=== PATIENT | female | born 1945 | race Caucasian/White ===

== ENCOUNTER 2019-05-21 14:31 | Emergency (ER) | payer MEDICARE, OTHER ==
[~2019-05-21] VITALS: Ht 154.9 cm; Wt 74.8 kg
[~2019-05-21 14:31] MED LIST: Cipro500 MG PO; Flagyl500 MG PO; Robaxin500 MG PO; UNKNOWN THYROID MED; Zofran Odt4 MG PO
[2019-05-21] MEDS ORDERED: LEVSOD100 PO (14:57)
[2019-05-21 16:21] LABS: BASOPHILS ABSOLUTE AUTO 0.07 K/mm3 (0.00-0.23); BASOPHILS PERCENT AUTO 1 % (0-2); EOSINOPHILS ABSOLUTE AUTO 0.17 K/mm3 (0.00-0.68); EOSINOPHILS PERCENT AUTO 2 % (0-6); Hemoglobin 14.9 g/dL (11.5-16.0); IMMATURE GRAN ABSOLUTE AUTO 0.03 K/mm3 (0.00-0.10); IMMATURE GRAN PERCENT AUTO 0 % (0-1); LYMPHOCYTES ABSOLUTE AUTO 2.02 K/mm3 (0.84-5.20); LYMPHOCYTES PERCENT AUTO 20 % (21-46); MONOCYTES ABSOLUTE AUTO 0.89 K/mm3 (0.16-1.47); MONOCYTES PERCENT AUTO 9 % (4-13); Mean Corpuscular HGB 34.3 pg (26.0-34.0); Mean Corpuscular HGB Conc 33.1 g/dL (31.5-36.5); Mean Corpuscular Volume 103 fL (80-100); Mean Platelet Volume 10.2 fL (9.1-12.4); NEUTROPHILS PERCENT AUTO 69 % (41-73); Platelet Count 291 K/mm3 (150-400); RDW Coefficient Variation 12.4 % (11.7-14.2); RDW Standard Deviation 47.5 fL (35.1-46.3); Red Blood Cell Count 4.35 M/mm3 (3.80-5.20); White Blood Cell Count 10.18 K/mm3 (4.00-11.30)
[2019-05-21 16:40] LABS: Alanine Aminotransfer (ALT/SGP 21 U/L (12-78); Albumin, Blood 4.1 g/dL (3.4-5.0); Alk Phos 96 U/L (50-136); Anion Gap 7 mmol/L (6-16); Aspartate Aminotrans (AST/SGOT 15 U/L (12-37); Bilirubin, Total 0.6 mg/dL (0.1-1.0); Blood Urea Nitrogen 13 mg/dL (8-24); Bun/Creatinine Ratio 16.9 (12.0-20.0); CO2, Blood 24 mmol/L (21-32); Calcium, Blood 9.2 mg/dL (8.5-10.1); Chloride, Blood 108 mmol/L (98-108); Creatinine, Blood 0.77 mg/dL (0.40-1.00); Glomerular Filtration Rate >60 (60-); Glucose, Blood 98 mg/dL (70-99); Sodium, Blood 139 mmol/L (136-145); Total Protein, Blood 8.1 g/dL (6.4-8.2)
[2019-05-21] MEDS ORDERED: ONDA4ODT MM (17:02)
[2019-05-21] MEDS ORDERED: IBUP400 PO (17:02)
== END 2019-05-21 17:19 | disposition home or self-care (01) ==
LOC: ER 14:31
PROVIDERS: Physician Assistant
DX: M53.3 Sacrococcygeal disorders, not elsewhere classified (principal); K63.89 Other specified diseases of intestine; Z87.891 Personal history of nicotine dependence; Z88.0 Allergy status to penicillin; Z88.8 Allergy status to other drugs, medicaments and biological substances; Z79.899 Other long term (current) drug therapy
CPT/HCPCS: 36415; 72131; 80053; 83690; 85025; 96372-59; 96374; 99284-25; A9270-GY; J1885; J2405; J2550

== ENCOUNTER 2019-05-31 15:12 | Inpatient (IN) | payer MEDICARE, OTHER ==
[~2019-05-31] VITALS: Ht 154.9 cm; Wt 81.1 kg
[~2019-05-31 15:12] MED LIST changes: +IBUP400 PO; +LEVSOD100 PO; +ONDA4ODT MM
[2019-05-31 15:48] LABS: Source, Urine Clean Catch
[2019-05-31 15:52] LABS: Blood, Urine 5+ (Neg); Glucose Qualitative, Urine Neg (Neg); Ketones, Urine 2+ (Neg); Leukocyte Esterase, Urine 3+ (Neg); Nitrite, Urine Neg (Neg); Protein, Urine 4+ (Neg); Urobilinogen, Urine 1+ (Normal)
[2019-05-31 15:55] LABS: Hematocrit 42.8 % (33.0-51.0); Hemoglobin 14.8 g/dL (11.5-16.0); LYMPHOCYTES ABSOLUTE AUTO 1.44 K/mm3 (0.84-5.20); LYMPHOCYTES PERCENT AUTO 4 % (21-46); MONOCYTES ABSOLUTE AUTO 1.08 K/mm3 (0.16-1.47); MONOCYTES PERCENT AUTO 3 % (4-13); Mean Corpuscular HGB 33.7 pg (26.0-34.0); Mean Corpuscular HGB Conc 34.6 g/dL (31.5-36.5); Mean Platelet Volume 12.4 fL (9.1-12.4); Platelet Count 131 K/mm3 (150-400); RDW Coefficient Variation 13.5 % (11.7-14.2); RDW Standard Deviation 49.3 fL (35.1-46.3); Red Blood Cell Count 4.39 M/mm3 (3.80-5.20); White Blood Cell Count 34.32 K/mm3 (4.00-11.30)
[2019-05-31 15:56] LABS: BASOPHILS ABSOLUTE AUTO 0.01 K/mm3 (0.00-0.23); BASOPHILS PERCENT AUTO 0 % (0-2); EOSINOPHILS ABSOLUTE AUTO 0.03 K/mm3 (0.00-0.68); EOSINOPHILS PERCENT AUTO 0 % (0-6); IMMATURE GRAN ABSOLUTE AUTO 1.49 K/mm3 (0.00-0.10); IMMATURE GRAN PERCENT AUTO 4 % (0-1); Mean Corpuscular Volume 98 fL (80-100); NEUTROPHILS ABSOLUTE AUTO 30.27 K/mm3 (1.96-9.15); NEUTROPHILS PERCENT AUTO 88 % (41-73)
[2019-05-31 16:07] LABS: Bilirubin, Urine 1+ (Neg)
[2019-05-31 16:14] LABS: Albumin, Blood 2.8 g/dL (3.4-5.0); Albumin/Globulin Ratio 0.6 (0.8-1.8); Bilirubin, Total 0.7 mg/dL (0.1-1.0); Creatinine, Blood 1.43 mg/dL (0.40-1.00); Globulin, Blood 4.8 g/dL (2.2-4.0); Potassium, Blood 3.1 mmol/L (3.5-5.5); Total Protein, Blood 7.6 g/dL (6.4-8.2)
[2019-05-31 16:14] LABS: Appearance, Urine Cloudy (Clear); Color, Urine Yellow (P-Yellow)
[2019-05-31 16:28] LABS: White Blood Cells, Urine TNTC /hpf (0-5)
[2019-05-31 16:29] LABS: Bacteria Many /hpf; Squamous Epithelial Cells Few /hpf (Few)
[2019-05-31] MEDS ORDERED: CYAN500 PO (20:08)
[2019-05-31] MEDS ORDERED: CENTRUM SILVER1 EAC2 PO (21:58)
[2019-05-31] MEDS ORDERED: TUMS500 MG PO (21:59)
[2019-05-31] MEDS ORDERED: Vitamin B-121000 MCG PO (21:59)
[2019-06-01 04:47] LABS: Hematocrit 35.2 % (33.0-51.0); Hemoglobin 12.2 g/dL (11.5-16.0); Mean Corpuscular HGB Conc 34.7 g/dL (31.5-36.5); Mean Corpuscular Volume 98 fL (80-100); Mean Platelet Volume 12.6 fL (9.1-12.4); Platelet Count 116 K/mm3 (150-400); RDW Coefficient Variation 13.9 % (11.7-14.2); RDW Standard Deviation 50.7 fL (35.1-46.3); Red Blood Cell Count 3.59 M/mm3 (3.80-5.20)
--- NOTE | 2019-06-01 04:51 | NUR ---
SHIFT SUMMARY: ARRIVED ON MEDICAL FLOOR AT 2130. A/OX3, T/F WITH SBA FROM STRETCHER TO BED. REPORTING MINOR NAUSEA IMMEDIATELY AFTER T/F AND IMPROVED WITH REST. REPORTING UPPER ABDOMEN/B SIDE PAIN- BELIEVES IT IS A RESULT OF RECENT FREQUENT BOUTS OF VOMITING AND DRY HEAVING. TORADOL ADMINISTERED X 1 ORDERED, LUCIA WELL AND REPORTED IMPROVEMENT IN PAIN FROM A 6/10 TO 4/10. NO FURTHER REPORTS OF N/V THE REST OF THE NIGHT. HAS SLEPT POORLY. ABT SOFT, TENDER WITH PALPATION, MILDLY DISTENDED. CALL BUTTON EXPLAINED AND PLACED WITHIN REACH. USING CALL BUTTON NEEDED APPROPRIATELY.
[2019-06-01 05:05] LABS: Bun/Creatinine Ratio 29.1 (12.0-20.0); Calcium, Blood 7.6 mg/dL (8.5-10.1); Creatinine, Blood 1.27 mg/dL (0.40-1.00); Potassium, Blood 3.6 mmol/L (3.5-5.5)
[2019-06-01 05:32] LABS: BAND PERCENT MAN 22 % (0-8); BASOPHILS PERCENT MAN 0 % (0-2); EOSINOPHILS PERCENT MAN 0 % (0-6); LYMPHOCYTES ABSOLUTE MAN 1.64 K/mm3 (0.84-5.20); LYMPHOCYTES PERCENT MAN 6 % (21-46); MONOCYTES ABSOLUTE MAN 0.27 K/mm3 (0.16-1.47); MONOCYTES PERCENT MAN 1 % (4-13); NEUTROPHILS ABSOLUTE MAN 25.48 K/mm3 (1.96-9.15); SEG NEUTROPHILS PERCENT MAN 71 % (41-73); TOTAL CELLS COUNTED 100
--- NOTE | 2019-06-01 18:26 | NUR ---
PATIENT A/OX4, UP WITH SBA TO RESTROOM. VSS, ON RA. TOLERATING CARDIAC DIET. DENIES ANY PAIN OR NAUSEA THIS SHIFT. REPORTS THAT SHE HAS HAD A BOWEL MOVEMENT TODAY, BUT STOOL APPEARED TO BE URINE AND PATIENT WAS NOT SURE IF IT WAS URINE OR STOOL IN THE HAT. STOOL SAMPLE STILL NEEDS TO BE COLLECTED. PATIENT HAD POSITIVE BLOOD CX THIS SHIFT AND WAS STARTED ON ROCEPHIN AND FLAGYL. HEPARIN FOR DVT PROPHYLAXSIS. SKIN INTACT. 20G IV TO R WRIST WNL, NS @ 100ML/HR INFUSING. PATIENT IS CALM AND COOPERATIVE WITH CARE AND USES CALL LIGHT APPROPRIATELY FOR ASSISTANCE.
[2019-06-02 04:50] LABS: BASOPHILS ABSOLUTE AUTO 0.09 K/mm3 (0.00-0.23); BASOPHILS PERCENT AUTO 1 % (0-2); Hematocrit 35.8 % (33.0-51.0); Hemoglobin 11.9 g/dL (11.5-16.0); LYMPHOCYTES ABSOLUTE AUTO 2.09 K/mm3 (0.84-5.20); LYMPHOCYTES PERCENT AUTO 12 % (21-46); MONOCYTES ABSOLUTE AUTO 0.64 K/mm3 (0.16-1.47); MONOCYTES PERCENT AUTO 4 % (4-13); Mean Corpuscular HGB 33.2 pg (26.0-34.0); Mean Corpuscular HGB Conc 33.2 g/dL (31.5-36.5); Mean Corpuscular Volume 100 fL (80-100); Mean Platelet Volume 12.5 fL (9.1-12.4); Platelet Count 138 K/mm3 (150-400); RDW Standard Deviation 51.5 fL (35.1-46.3); Red Blood Cell Count 3.58 M/mm3 (3.80-5.20)
[2019-06-02 04:53] LABS: EOSINOPHILS ABSOLUTE AUTO 0.33 K/mm3 (0.00-0.68); EOSINOPHILS PERCENT AUTO 2 % (0-6); IMMATURE GRAN ABSOLUTE AUTO 0.42 K/mm3 (0.00-0.10); IMMATURE GRAN PERCENT AUTO 3 % (0-1); NEUTROPHILS ABSOLUTE AUTO 13.23 K/mm3 (1.96-9.15); NEUTROPHILS PERCENT AUTO 79 % (41-73)
--- NOTE | 2019-06-02 05:03 | NUR ---
SHIFT SUMMARY: VSS/AFEB. A/OX4. COMMUNICATES NEEDS. REPORTS BURNING WITH VOIDS. NO BM'S TONIGHT. ABD SOFT, TENDER IN LLQ AND RUQ. DENIES N/V. REPEATEDLY CLEARING THROAT TONIGHT STATING INCREASED PHLEGM IN THROAT. NO COUGH AND LUNGS CTA. DENIES PAIN. BED LOW, CALL BUTTON IN REACH.
[2019-06-02 05:08] LABS: Magnesium, Blood 1.9 mg/dL (1.6-2.4)
[2019-06-02 05:16] LABS: Albumin/Globulin Ratio 0.6 (0.8-1.8); Bilirubin, Total 0.6 mg/dL (0.1-1.0); Bun/Creatinine Ratio 21.5 (12.0-20.0); Creatinine, Blood 1.07 mg/dL (0.40-1.00); Globulin, Blood 3.6 g/dL (2.2-4.0); Potassium, Blood 3.2 mmol/L (3.5-5.5)
[2019-06-02 05:18] LABS: Total Protein, Blood 5.6 g/dL (6.4-8.2)
--- NOTE | 2019-06-02 17:37 | NUR ---
SHIFT SUMMARY NO ACUTE CHANGES THIS SHIFT. PT DINISE PAIN. AMBULATES INDEPENDENTLY TO RESTROOM. PT HAS HAD 3 LOOSE STOOLS THIS SHIFT, PT CLEARED FOR C-DIFF. PT HAD A GOOD APETITE. CALL LIGHT WITH IN REACH. WILL REPORT TO ON COMING SHIFT.
--- NOTE | 2019-06-03 05:02 | NUR ---
Shift Summary Patient slept well overnight. No BM overnight. She does report mild abdominal pain with palpation.
[2019-06-03 05:38] LABS: BASOPHILS ABSOLUTE AUTO 0.06 K/mm3 (0.00-0.23); BASOPHILS PERCENT AUTO 1 % (0-2); EOSINOPHILS ABSOLUTE AUTO 0.29 K/mm3 (0.00-0.68); EOSINOPHILS PERCENT AUTO 3 % (0-6); Hematocrit 32.6 % (33.0-51.0); Hemoglobin 10.9 g/dL (11.5-16.0); IMMATURE GRAN ABSOLUTE AUTO 0.36 K/mm3 (0.00-0.10); IMMATURE GRAN PERCENT AUTO 3 % (0-1); LYMPHOCYTES ABSOLUTE AUTO 1.55 K/mm3 (0.84-5.20); LYMPHOCYTES PERCENT AUTO 14 % (21-46); MONOCYTES ABSOLUTE AUTO 0.63 K/mm3 (0.16-1.47); MONOCYTES PERCENT AUTO 6 % (4-13); Mean Corpuscular HGB 32.7 pg (26.0-34.0); Mean Corpuscular HGB Conc 33.4 g/dL (31.5-36.5); Mean Corpuscular Volume 98 fL (80-100); Mean Platelet Volume 12.5 fL (9.1-12.4); NEUTROPHILS ABSOLUTE AUTO 8.54 K/mm3 (1.96-9.15); NEUTROPHILS PERCENT AUTO 75 % (41-73); Platelet Count 165 K/mm3 (150-400); RDW Coefficient Variation 13.8 % (11.7-14.2); RDW Standard Deviation 50.3 fL (35.1-46.3); Red Blood Cell Count 3.33 M/mm3 (3.80-5.20); White Blood Cell Count 11.43 K/mm3 (4.00-11.30)
[2019-06-03 06:05] LABS: Alanine Aminotransfer (ALT/SGP 23 U/L (12-78); Albumin/Globulin Ratio 0.6 (0.8-1.8); Alk Phos 88 U/L (50-136); Anion Gap 9 mmol/L (6-16); Aspartate Aminotrans (AST/SGOT 12 U/L (12-37); Bilirubin, Total 0.4 mg/dL (0.1-1.0); Blood Urea Nitrogen 14 mg/dL (8-24); Bun/Creatinine Ratio 15.2 (12.0-20.0); CO2, Blood 20 mmol/L (21-32); Chloride, Blood 117 mmol/L (98-108); Creatinine, Blood 0.92 mg/dL (0.40-1.00); Globulin, Blood 3.2 g/dL (2.2-4.0); Glomerular Filtration Rate >60 (60-); Glucose, Blood 91 mg/dL (70-99); Phosphorus, Blood 2.3 mg/dL (2.5-4.9); Potassium, Blood 3.4 mmol/L (3.5-5.5); Sodium, Blood 146 mmol/L (136-145); Total Protein, Blood 5.2 g/dL (6.4-8.2)
--- NOTE | 2019-06-03 14:58 | NUR ---
PT SWALLOWING PT STATES DIFFICULTY SWALLOWING PILLS, REQUEST PILLS TO BE CRUCHED IN APPLE SAUCE. THIS RN NOTICED HACKING AND COUGHING AFTER MEALS. ST ORDERED PER DR. FIGUEROA
--- NOTE | 2019-06-03 18:05 | NUR ---
SHIFT SUMMARY NO ACUTE CHANGES THIS SHIFT. PT DINES ANY PAIN DURING THE SHIFT. PT TOLERATED FOOD WELL. PT REQUESTED PILLS TO BE CRUSHED. NOTIFIED DR FIGUEROA ABOUT SWALLOW CONCERNS. SWALLOW EVAL ORDERED. PT INDEPENTENT TO BATHROOM. CALL LIGHT WITH IN REACH. WILL REPORT TO ON COMING SHIFT.
--- NOTE | 2019-06-03 18:40 | NUR ---
Spiritual Care initial note: Keely and her are non-yazidism, but responded well to encouragement and asurance of care. Strong marriage, and pt feels loved and supported by family. No fears presented. Affirmed obvious love. I will remain available.
--- NOTE | 2019-06-03 23:56 | NUR ---
PATIENT SLEEPING/AROUSABLE. IV ABX INFUSING AND HEPARIN GIVEN PER EMAR. PATIENT BACK TO SLEEP. CALL LIGHT IN REACH.
--- NOTE | 2019-06-04 03:36 | NUR ---
SHIFT SUMMARY PATIENT HAD NO ACUTE CHANGES OBSERVED. AXO X3 AND INDEPENDENT IN ROOM. NEW PIV PLACED. NS INFUSING AT 100 mL/HR. VSS/AFEBRILE. MILD ABDOMEN PAIN WITH PALPITATION. DENIES SOB AND N/V. IV ABX INFUSED. TAKES MEDS CRUSHED IN APPLE SAUCE. PATIENT REPORTS MUCOUS SECRETIONS FOR OVER SIX MONTHS AND NO OTC PRODUCTS GIVES HER RELIEF. SWALLOW EVAL IN AM. COOPERATIVE WITH CARE. CALL LIGHT IN REACH. BED IN LOWEST POSITION. WILL CONTINUE TO MONITOR UNTIL DAY SHIFT NURSE ASSUMES CARE.
[2019-06-04 05:32] LABS: BASOPHILS ABSOLUTE AUTO 0.04 K/mm3 (0.00-0.23); BASOPHILS PERCENT AUTO 0 % (0-2); EOSINOPHILS ABSOLUTE AUTO 0.29 K/mm3 (0.00-0.68); EOSINOPHILS PERCENT AUTO 3 % (0-6); Hematocrit 32.9 % (33.0-51.0); Hemoglobin 10.9 g/dL (11.5-16.0); IMMATURE GRAN ABSOLUTE AUTO 0.31 K/mm3 (0.00-0.10); IMMATURE GRAN PERCENT AUTO 3 % (0-1); LYMPHOCYTES ABSOLUTE AUTO 1.55 K/mm3 (0.84-5.20); LYMPHOCYTES PERCENT AUTO 15 % (21-46); MONOCYTES ABSOLUTE AUTO 0.65 K/mm3 (0.16-1.47); MONOCYTES PERCENT AUTO 6 % (4-13); Mean Corpuscular HGB 32.7 pg (26.0-34.0); Mean Corpuscular HGB Conc 33.1 g/dL (31.5-36.5); Mean Corpuscular Volume 99 fL (80-100); Mean Platelet Volume 12.1 fL (9.1-12.4); NEUTROPHILS ABSOLUTE AUTO 7.66 K/mm3 (1.96-9.15); NEUTROPHILS PERCENT AUTO 73 % (41-73); Platelet Count 208 K/mm3 (150-400); RDW Coefficient Variation 13.8 % (11.7-14.2); RDW Standard Deviation 50.5 fL (35.1-46.3); Red Blood Cell Count 3.33 M/mm3 (3.80-5.20)
[2019-06-04 06:08] LABS: Magnesium, Blood 1.5 mg/dL (1.6-2.4)
[2019-06-04 06:10] LABS: Alanine Aminotransfer (ALT/SGP 27 U/L (12-78); Albumin, Blood 2.1 g/dL (3.4-5.0); Albumin/Globulin Ratio 0.7 (0.8-1.8); Alk Phos 81 U/L (50-136); Anion Gap 7 mmol/L (6-16); Aspartate Aminotrans (AST/SGOT 26 U/L (12-37); Bilirubin, Total 0.6 mg/dL (0.1-1.0); Blood Urea Nitrogen 8 mg/dL (8-24); Bun/Creatinine Ratio 9.2 (12.0-20.0); CO2, Blood 22 mmol/L (21-32); Calcium, Blood 7.7 mg/dL (8.5-10.1); Chloride, Blood 116 mmol/L (98-108); Creatinine, Blood 0.87 mg/dL (0.40-1.00); Globulin, Blood 3.2 g/dL (2.2-4.0); Glomerular Filtration Rate >60 (60-); Glucose, Blood 90 mg/dL (70-99); Phosphorus, Blood 2.4 mg/dL (2.5-4.9); Potassium, Blood 3.4 mmol/L (3.5-5.5); Sodium, Blood 145 mmol/L (136-145); Total Protein, Blood 5.3 g/dL (6.4-8.2)
[2019-06-04] MEDS ORDERED: METR500 PO (14:22)
--- NOTE | 2019-06-04 15:17 | NUR ---
DISCHARGE NOTE PT STABLE, DISCHARGED HOME WITH TAKEN BY W/C TO , BY PRIVATE CAR. INSTRUCTED PT ON NEW MEDS AND EDUCATION PROVIDED. INSTRUCTED PT TO RETURN TO ER IF SYMPTOMS RETURN AND SCHEDULE APPOINTMENT WITH PCP STEVE 2 WEEKS
== END 2019-06-04 15:15 | disposition home or self-care (01) | DRG 872 ==
LOC: ER 15:12 → MEDS 15:13
PROVIDERS: Internal Medicine; Physician Assistant; ADMIT Hospitalist
DX: A41.51 Sepsis due to Escherichia coli [E. coli] (principal); N17.9 Acute kidney failure, unspecified; E87.2 Acidosis; N39.0 Urinary tract infection, site not specified; R65.20 Severe sepsis without septic shock; E87.6 Hypokalemia; E03.9 Hypothyroidism, unspecified; K52.9 Noninfective gastroenteritis and colitis, unspecified; Z87.891 Personal history of nicotine dependence; Z23 Encounter for immunization
CPT/HCPCS: 36415; 71046; 74176; 80048; 80053; 81001; 83605; 83690; 83735; 84100; 84443; 85025; 87040; 87077; 87086; 87186; 87493; 90686; 92610; 96361; 96365; 96366; 96367; 96372; 96375; 96376; 99285-25; G0008; G0378; J0696; J1644; J1885; J2405; J3475; J3480; J7030; J7120

== ENCOUNTER 2020-05-29 00:23 | Day surgery (SDC) | payer MEDICARE, OTHER ==
[~2020-05-29 00:23] MED LIST changes: +CENTRUM SILVER1 EAC2 PO; +CYAN500 PO; +METR500 PO; +TUMS500 MG PO; +Vitamin B-121000 MCG PO
[2020-05-30] MEDS ORDERED: Vitamin B-121000 MCG PO (09:45)
[2020-05-30] MEDS ORDERED: Child Chew Vit1 EACH PO (09:48)
== END 2020-05-29 23:37 | disposition home or self-care (01) ==
LOC: ATC 00:23
DX: K57.20 Diverticulitis of large intestine with perforation and abscess without bleeding (principal); K42.9 Umbilical hernia without obstruction or gangrene; Z88.0 Allergy status to penicillin; Z88.5 Allergy status to narcotic agent; E03.9 Hypothyroidism, unspecified; Z79.899 Other long term (current) drug therapy

== ENCOUNTER 2020-06-02 02:50 | Day surgery (SDC) | payer MEDICARE, OTHER ==
[~2020-06-02 02:50] MED LIST changes: +Child Chew Vit1 EACH PO
== END 2020-06-02 09:58 | disposition home or self-care (01) ==
LOC: ATC 02:50
DX: K57.20 Diverticulitis of large intestine with perforation and abscess without bleeding (principal); E03.9 Hypothyroidism, unspecified; M19.90 Unspecified osteoarthritis, unspecified site; Z79.2 Long term (current) use of antibiotics; Z79.899 Other long term (current) drug therapy; Z90.49 Acquired absence of other specified parts of digestive tract; Z90.710 Acquired absence of both cervix and uterus; Z88.0 Allergy status to penicillin; Z88.5 Allergy status to narcotic agent; Z51.5 Encounter for palliative care
CPT/HCPCS: 96365; 96368; J0696

== ENCOUNTER 2020-06-03 09:00 | Day surgery (SDC) | payer MEDICARE, OTHER | END 2020-06-03 10:16 | disposition home or self-care (01) | LOC: ATC 09:00 | DX: K57.20 Diverticulitis of large intestine with perforation and abscess without bleeding (principal); Z88.0 Allergy status to penicillin; Z88.5 Allergy status to narcotic agent; Z79.899 Other long term (current) drug therapy | CPT/HCPCS: 96365; 96368; J0696 ==

== ENCOUNTER 2020-06-04 00:37 | Day surgery (SDC) | payer MEDICARE, OTHER | END 2020-06-04 10:02 | disposition home or self-care (01) | LOC: ATC 00:37 | DX: K57.20 Diverticulitis of large intestine with perforation and abscess without bleeding (principal); Z88.0 Allergy status to penicillin; Z88.5 Allergy status to narcotic agent; Z79.899 Other long term (current) drug therapy | CPT/HCPCS: J0696 ==

== ENCOUNTER 2020-06-05 08:56 | Day surgery (SDC) | payer MEDICARE, OTHER | END 2020-06-05 10:10 | disposition home or self-care (01) | LOC: ATC 08:56 | DX: K57.20 Diverticulitis of large intestine with perforation and abscess without bleeding (principal); Z88.0 Allergy status to penicillin; Z88.5 Allergy status to narcotic agent; Z79.899 Other long term (current) drug therapy | CPT/HCPCS: J0696 ==

== ENCOUNTER 2020-06-06 01:46 | Day surgery (SDC) | payer MEDICARE, OTHER ==
--- NOTE | 2020-06-07 11:42 | NUR ---
FLAGYL INFUSION: 1ST BAG OF FLAGYL 500MG IV WAS STOPPED AT 0940. 2ND BAG OF FLAGYL 500MG IV WAS HUNG AT 0940 AND STOPPED AT 1017.
== END 2020-06-06 10:17 | disposition home or self-care (01) ==
LOC: ATC 01:46
DX: K57.20 Diverticulitis of large intestine with perforation and abscess without bleeding (principal); E03.9 Hypothyroidism, unspecified; Z88.5 Allergy status to narcotic agent; Z88.0 Allergy status to penicillin; Z79.899 Other long term (current) drug therapy
CPT/HCPCS: J0696

== ENCOUNTER 2020-06-07 00:19 | Day surgery (SDC) | payer MEDICARE, OTHER | END 2020-06-07 09:57 | disposition home or self-care (01) | LOC: ATC 00:19 | DX: K57.20 Diverticulitis of large intestine with perforation and abscess without bleeding (principal); E03.9 Hypothyroidism, unspecified; M19.90 Unspecified osteoarthritis, unspecified site; Z88.0 Allergy status to penicillin; Z88.5 Allergy status to narcotic agent; Z79.899 Other long term (current) drug therapy; Z79.2 Long term (current) use of antibiotics; Z90.49 Acquired absence of other specified parts of digestive tract | CPT/HCPCS: J0696 ==

== ENCOUNTER 2020-06-08 00:06 | Day surgery (SDC) | payer MEDICARE, OTHER | END 2020-06-08 09:50 | disposition home or self-care (01) | LOC: ATC 00:06 | DX: K57.20 Diverticulitis of large intestine with perforation and abscess without bleeding (principal); E03.9 Hypothyroidism, unspecified; M19.90 Unspecified osteoarthritis, unspecified site; Z79.2 Long term (current) use of antibiotics; Z79.899 Other long term (current) drug therapy; Z90.49 Acquired absence of other specified parts of digestive tract; Z90.710 Acquired absence of both cervix and uterus; Z88.0 Allergy status to penicillin; Z88.5 Allergy status to narcotic agent | CPT/HCPCS: 96365; 96368; J0696 ==

== ENCOUNTER 2020-06-28 14:13 | Inpatient (IN) | payer MEDICARE, OTHER ==
[~2020-06-28] VITALS: Ht 149.9 cm; Wt 70.7 kg
[2020-07-01 09:25] LABS: Hematocrit 37.2 % (33.0-51.0); Mean Corpuscular HGB 32.7 pg (26.0-34.0); Mean Corpuscular HGB Conc 32.3 g/dL (31.5-36.5); Mean Corpuscular Volume 101 fL (80-100); Mean Platelet Volume 9.7 fL (9.1-12.4); Platelet Count 336 K/mm3 (150-400); RDW Coefficient Variation 13.7 % (11.7-14.2); RDW Standard Deviation 51.8 fL (35.1-46.3); Red Blood Cell Count 3.67 M/mm3 (3.80-5.20); White Blood Cell Count 13.26 K/mm3 (4.00-11.30)
[2020-07-01 09:32] LABS: Albumin, Blood 3.3 g/dL (3.4-5.0); Anion Gap 6 mmol/L (6-16); Blood Urea Nitrogen 10 mg/dL (8-24); Bun/Creatinine Ratio 15.3 (12.0-20.0); CO2, Blood 24 mmol/L (21-32); Calcium, Blood 8.3 mg/dL (8.5-10.1); Chloride, Blood 113 mmol/L (98-108); Creatinine, Blood 0.66 mg/dL (0.40-1.00); Glomerular Filtration Rate >60 (60-); Glucose, Blood 104 mg/dL (70-99); Phosphorus, Blood 2.4 mg/dL (2.5-4.9); Potassium, Blood 3.3 mmol/L (3.5-5.5); Prealbumin, Blood 15.6 mg/dL (20.0-40.0); Sodium, Blood 143 mmol/L (136-145)
[2020-07-02 03:49] LABS: Hemoglobin 12.1 g/dL (11.5-16.0); Mean Corpuscular HGB 32.6 pg (26.0-34.0); Mean Corpuscular HGB Conc 31.8 g/dL (31.5-36.5); Mean Corpuscular Volume 102 fL (80-100); RDW Coefficient Variation 13.8 % (11.7-14.2); RDW Standard Deviation 52.8 fL (35.1-46.3); Red Blood Cell Count 3.71 M/mm3 (3.80-5.20); White Blood Cell Count 15.42 K/mm3 (4.00-11.30)
[2020-07-02 03:53] LABS: Mean Platelet Volume 10.3 fL (9.1-12.4); Platelet Count 240 K/mm3 (150-400)
[2020-07-02 04:12] LABS: Anion Gap 5 mmol/L (6-16); Blood Urea Nitrogen 7 mg/dL (8-24); Bun/Creatinine Ratio 10.6 (12.0-20.0); CO2, Blood 25 mmol/L (21-32); Chloride, Blood 114 mmol/L (98-108); Creatinine, Blood 0.66 mg/dL (0.40-1.00); Glomerular Filtration Rate >60 (60-); Glucose, Blood 133 mg/dL (70-99); Potassium, Blood 4.4 mmol/L (3.5-5.5); Sodium, Blood 144 mmol/L (136-145)
[2020-07-04 03:42] LABS: Hematocrit 34.9 % (33.0-51.0); Hemoglobin 11.1 g/dL (11.5-16.0); Mean Corpuscular HGB Conc 31.8 g/dL (31.5-36.5); Mean Corpuscular Volume 104 fL (80-100); Platelet Count 275 K/mm3 (150-400); RDW Standard Deviation 54.2 fL (35.1-46.3); Red Blood Cell Count 3.36 M/mm3 (3.80-5.20); White Blood Cell Count 17.53 K/mm3 (4.00-11.30)
[2020-07-04 03:59] LABS: Anion Gap 4 mmol/L (6-16); Blood Urea Nitrogen 13 mg/dL (8-24); Bun/Creatinine Ratio 16.1 (12.0-20.0); CO2, Blood 26 mmol/L (21-32); Calcium, Blood 9.1 mg/dL (8.5-10.1); Chloride, Blood 111 mmol/L (98-108); Creatinine, Blood 0.81 mg/dL (0.40-1.00); Glomerular Filtration Rate >60 (60-); Glucose, Blood 108 mg/dL (70-99); Magnesium, Blood 2.2 mg/dL (1.6-2.4); Potassium, Blood 4.6 mmol/L (3.5-5.5); Sodium, Blood 141 mmol/L (136-145)
[2020-07-05 04:14] LABS: BASOPHILS ABSOLUTE AUTO 0.04 K/mm3 (0.00-0.23); BASOPHILS PERCENT AUTO 1 % (0-2); EOSINOPHILS PERCENT AUTO 4 % (0-6); Hematocrit 31.2 % (33.0-51.0); Hemoglobin 9.9 g/dL (11.5-16.0); IMMATURE GRAN ABSOLUTE AUTO 0.05 K/mm3 (0.00-0.10); IMMATURE GRAN PERCENT AUTO 1 % (0-1); LYMPHOCYTES ABSOLUTE AUTO 0.96 K/mm3 (0.84-5.20); LYMPHOCYTES PERCENT AUTO 11 % (21-46); MONOCYTES ABSOLUTE AUTO 0.75 K/mm3 (0.16-1.47); MONOCYTES PERCENT AUTO 9 % (4-13); Mean Corpuscular HGB 33.1 pg (26.0-34.0); Mean Corpuscular HGB Conc 31.7 g/dL (31.5-36.5); Mean Corpuscular Volume 104 fL (80-100); Mean Platelet Volume 10.4 fL (9.1-12.4); NEUTROPHILS ABSOLUTE AUTO 6.34 K/mm3 (1.96-9.15); NEUTROPHILS PERCENT AUTO 75 % (41-73); Platelet Count 260 K/mm3 (150-400); RDW Coefficient Variation 13.8 % (11.7-14.2); Red Blood Cell Count 2.99 M/mm3 (3.80-5.20); White Blood Cell Count 8.44 K/mm3 (4.00-11.30)
[2020-07-05 09:54] LABS: Hematocrit 33.6 % (33.0-51.0); Hemoglobin 10.6 g/dL (11.5-16.0); Mean Corpuscular HGB 32.8 pg (26.0-34.0); Mean Corpuscular HGB Conc 31.5 g/dL (31.5-36.5); Mean Corpuscular Volume 104 fL (80-100); Mean Platelet Volume 9.9 fL (9.1-12.4); Platelet Count 265 K/mm3 (150-400); RDW Coefficient Variation 13.6 % (11.7-14.2); RDW Standard Deviation 52.9 fL (35.1-46.3); Red Blood Cell Count 3.23 M/mm3 (3.80-5.20); White Blood Cell Count 9.21 K/mm3 (4.00-11.30)
[2020-07-06 04:03] LABS: BASOPHILS ABSOLUTE AUTO 0.04 K/mm3 (0.00-0.23); BASOPHILS PERCENT AUTO 1 % (0-2); EOSINOPHILS PERCENT AUTO 4 % (0-6); Hematocrit 31.4 % (33.0-51.0); IMMATURE GRAN ABSOLUTE AUTO 0.05 K/mm3 (0.00-0.10); IMMATURE GRAN PERCENT AUTO 1 % (0-1); LYMPHOCYTES ABSOLUTE AUTO 1.23 K/mm3 (0.84-5.20); LYMPHOCYTES PERCENT AUTO 16 % (21-46); MONOCYTES ABSOLUTE AUTO 0.69 K/mm3 (0.16-1.47); MONOCYTES PERCENT AUTO 9 % (4-13); Mean Corpuscular HGB 32.4 pg (26.0-34.0); Mean Corpuscular HGB Conc 31.8 g/dL (31.5-36.5); Mean Corpuscular Volume 102 fL (80-100); Mean Platelet Volume 10.4 fL (9.1-12.4); NEUTROPHILS ABSOLUTE AUTO 5.46 K/mm3 (1.96-9.15); NEUTROPHILS PERCENT AUTO 70 % (41-73); Platelet Count 263 K/mm3 (150-400); RDW Coefficient Variation 13.5 % (11.7-14.2); Red Blood Cell Count 3.09 M/mm3 (3.80-5.20); White Blood Cell Count 7.77 K/mm3 (4.00-11.30)
[2020-07-06 04:23] LABS: Albumin, Blood 2.2 g/dL (3.4-5.0); Anion Gap 5 mmol/L (6-16); Blood Urea Nitrogen 11 mg/dL (8-24); Bun/Creatinine Ratio 14.4 (12.0-20.0); CO2, Blood 25 mmol/L (21-32); Calcium, Blood 8.3 mg/dL (8.5-10.1); Chloride, Blood 112 mmol/L (98-108); Creatinine, Blood 0.77 mg/dL (0.40-1.00); Glomerular Filtration Rate >60 (60-); Glucose, Blood 89 mg/dL (70-99); Phosphorus, Blood 2.8 mg/dL (2.5-4.9); Potassium, Blood 4.1 mmol/L (3.5-5.5); Sodium, Blood 142 mmol/L (136-145)
[2020-07-08 05:39] LABS: Alanine Aminotransfer (ALT/SGP 31 U/L (12-78); Albumin, Blood 2.4 g/dL (3.4-5.0); Albumin/Globulin Ratio 0.7 (0.8-1.8); Alk Phos 84 U/L (50-136); Anion Gap 5 mmol/L (6-16); Aspartate Aminotrans (AST/SGOT 39 U/L (12-37); Bilirubin, Direct <0.1 mg/dL (0.0-0.3); Bilirubin, Indirect Unable to Calculate mg/dL (0.1-0.7); Bilirubin, Total 0.2 mg/dL (0.1-1.0); Blood Urea Nitrogen 10 mg/dL (8-24); Bun/Creatinine Ratio 15.8 (12.0-20.0); CO2, Blood 28 mmol/L (21-32); Calcium, Blood 8.2 mg/dL (8.5-10.1); Chloride, Blood 111 mmol/L (98-108); Creatinine, Blood 0.63 mg/dL (0.40-1.00); Globulin, Blood 3.3 g/dL (2.2-4.0); Glomerular Filtration Rate >60 (60-); Glucose, Blood 104 mg/dL (70-99); Phosphorus, Blood 3.2 mg/dL (2.5-4.9); Potassium, Blood 3.8 mmol/L (3.5-5.5); Prealbumin, Blood 13.2 mg/dL (20.0-40.0); Sodium, Blood 144 mmol/L (136-145); Total Protein, Blood 5.7 g/dL (6.4-8.2); Triglycerides 134 mg/dL (30-160)
[2020-07-09 07:01] LABS: Anion Gap 5 mmol/L (6-16); Blood Urea Nitrogen 10 mg/dL (8-24); CO2, Blood 26 mmol/L (21-32); Calcium, Blood 8.6 mg/dL (8.5-10.1); Chloride, Blood 111 mmol/L (98-108); Creatinine, Blood 0.62 mg/dL (0.40-1.00); Glomerular Filtration Rate >60 (60-); Glucose, Blood 98 mg/dL (70-99); Magnesium, Blood 2.2 mg/dL (1.6-2.4); Phosphorus, Blood 3.1 mg/dL (2.5-4.9); Potassium, Blood 3.9 mmol/L (3.5-5.5); Sodium, Blood 142 mmol/L (136-145)
[2020-07-10 05:23] LABS: BASOPHILS ABSOLUTE AUTO 0.07 K/mm3 (0.00-0.23); BASOPHILS PERCENT AUTO 1 % (0-2); EOSINOPHILS ABSOLUTE AUTO 0.37 K/mm3 (0.00-0.68); EOSINOPHILS PERCENT AUTO 4 % (0-6); Hematocrit 36.6 % (33.0-51.0); Hemoglobin 11.7 g/dL (11.5-16.0); IMMATURE GRAN ABSOLUTE AUTO 0.19 K/mm3 (0.00-0.10); IMMATURE GRAN PERCENT AUTO 2 % (0-1); LYMPHOCYTES ABSOLUTE AUTO 2.48 K/mm3 (0.84-5.20); LYMPHOCYTES PERCENT AUTO 27 % (21-46); MONOCYTES ABSOLUTE AUTO 0.86 K/mm3 (0.16-1.47); MONOCYTES PERCENT AUTO 9 % (4-13); Mean Corpuscular HGB 32.7 pg (26.0-34.0); Mean Corpuscular Volume 102 fL (80-100); Mean Platelet Volume 10.5 fL (9.1-12.4); NEUTROPHILS PERCENT AUTO 57 % (41-73); Platelet Count 423 K/mm3 (150-400); RDW Coefficient Variation 14.1 % (11.7-14.2); RDW Standard Deviation 52.8 fL (35.1-46.3); Red Blood Cell Count 3.58 M/mm3 (3.80-5.20); White Blood Cell Count 9.17 K/mm3 (4.00-11.30)
[2020-07-10 05:51] LABS: Anion Gap 7 mmol/L (6-16); Blood Urea Nitrogen 15 mg/dL (8-24); Bun/Creatinine Ratio 19.7 (12.0-20.0); CO2, Blood 25 mmol/L (21-32); Calcium, Blood 8.5 mg/dL (8.5-10.1); Chloride, Blood 108 mmol/L (98-108); Creatinine, Blood 0.76 mg/dL (0.40-1.00); Glomerular Filtration Rate >60 (60-); Glucose, Blood 93 mg/dL (70-99); Magnesium, Blood 2.2 mg/dL (1.6-2.4); Phosphorus, Blood 3.4 mg/dL (2.5-4.9); Potassium, Blood 3.7 mmol/L (3.5-5.5); Sodium, Blood 140 mmol/L (136-145)
[2020-07-12] MEDS ORDERED: ACET325 PO (13:47)
[2020-07-12] MEDS ORDERED: METAMUCIL POWD575 GM PO (13:48)
[2020-08-04] MEDS ORDERED: LEVO-T100 MC1 PO (12:36)
== END 2020-07-12 16:14 | disposition home or self-care (01) | DRG 329 ==
LOC: SURS 07-01 07:02 → PRE IP 07-01 07:30 → SURS 07-01 14:14
PROVIDERS: Surgery; ADMIT Surgery
PROC: 05HY33Z Insertion of Infusion Device into Upper Vein, Percutaneous Approach (ICD-10-PCS; 2020-07-01)
PROC: 0W9J4ZX Drainage of Pelvic Cavity, Percutaneous Endoscopic Approach, Diagnostic (ICD-10-PCS; 2020-07-01)
PROC: 0DTN0ZZ Resection of Sigmoid Colon, Open Approach (ICD-10-PCS; principal; 2020-07-01 08:15)
PROC: 0D1B0Z4 Bypass Ileum to Cutaneous, Open Approach (ICD-10-PCS; 2020-07-01 08:15)
DX: K57.20 Diverticulitis of large intestine with perforation and abscess without bleeding (principal); K65.8 Other peritonitis; K56.7 Ileus, unspecified; K42.9 Umbilical hernia without obstruction or gangrene; Z53.31 Laparoscopic surgical procedure converted to open procedure
CPT/HCPCS: 36415; 36569; 74177; 80048; 80069; 80076; 82947; 83735; 84100; 84134; 84478; 85025; 85027; 86140; 87070; 87075; 87205; 88307; 97116; 97161; 97165; 97530; 97535; A9270; C1751; J0694; J1100; J1170; J1644; J1650; J1885; J2250; J2370; J2405; J2550; J2704; J2765; J3010; J7050; J7120; Q9967; Q9968

== ENCOUNTER 2020-08-05 15:28 | Inpatient (IN) | payer MEDICARE, OTHER ==
[~2020-08-05] VITALS: Ht 154.9 cm; Wt 69.1 kg
[~2020-08-05 15:28] MED LIST changes: +ACET325 PO; +LEVO-T100 MC1 PO; +METAMUCIL POWD575 GM PO
--- NOTE | 2020-08-10 07:29 | NUR ---
Ambulatory in Day Surgery. Surgical site prepped with 2% Chlorhexidine cloth wipe. History, Chart, Medications and Allergies reviewed before start of procedure.Lungs clear T/O to Auscultation. Patient confirms NPO status and agrees with scheduled surgery. Pre-Op teaching done. Pt verbalizes understanding. Patient States Post-Procedure ride home has been arranged. Patient reports completing Chlorhexadine shower X2 prior to admission to hospital.
--- NOTE | 2020-08-10 10:54 | NUR ---
PT ARRIVED TO UNIT FROM PACU A&OX4. REPORTED PAIN 6/10 TO ABD. MEDICATED PER ORDERS FOR PAIN; NOW STATES SLIGHT IMPROVEMENT, RATING 5/10. HEMMORHOID CLOT EXCISED, MOD AMT BLEEDING NOTED ON ARANDA PAD. LAP INCISIONS TO ABD SECURED WITH WOUND GLUE. ILEOSTOMY CLOSURE SITE HAS GAUZE W/MOD AMT SHADOWING NOTED. PT RESTING W/EYES CLOSED. VSS. CALL LIGHT IN REACH.
--- NOTE | 2020-08-10 15:22 | NUR ---
DRESSING TO ILEOSTOMY CLOSURE SITE SATURATED AND LEAKING. PLACED NEW GAUZE AND TAPE OVER SITE.
--- NOTE | 2020-08-10 17:51 | NUR ---
SUMMARY PT ARRIVED TO UNIT FROM PACU THIS MORNING. HAS SLEPT OFF AND ON T/O MOST OF DAY. MEDICATED TWICE FOR PAIN AND NAUSEA. PT DID AMBULATE TO RESTROOM AND VOIDED. CHANGED DRESSING TO ABDOMEN DUE TO SATURATION THIS AFTERNOON. PT SITTING UP IN BED, EATING DINNER. CALL LIGHT IN REACH.
--- NOTE | 2020-08-10 18:16 | NUR ---
EMESIS PT ATE SMALL AMOUNT OF DINNER AND IMMEDIATELY HAD 200 ML EMESIS. MEDICATED PER ORDERS W/ZOFRAN. RATED PAIN 6-7/10 TO ABDOMEN. MEDICATED PER ORDERS W/TORADOL. IV FLUIDS INFUSING. DENIES ANY OTHER NEEDS AT THIS TIME. CALL LIGHT IN REACH.
[2020-08-11 05:42] LABS: Hematocrit 32.1 % (33.0-51.0); Hemoglobin 10.4 g/dL (11.5-16.0); Mean Corpuscular HGB 33.7 pg (26.0-34.0); Mean Corpuscular HGB Conc 32.4 g/dL (31.5-36.5); Mean Corpuscular Volume 104 fL (80-100); Mean Platelet Volume 10.4 fL (9.1-12.4); Platelet Count 217 K/mm3 (150-400); RDW Coefficient Variation 14.3 % (11.7-14.2); RDW Standard Deviation 54.6 fL (35.1-46.3); Red Blood Cell Count 3.09 M/mm3 (3.80-5.20); White Blood Cell Count 10.55 K/mm3 (4.00-11.30)
--- NOTE | 2020-08-11 06:31 | NUR ---
POD 1 S/P ILEOSTOMY TAKEDOWN. PT VSS T/O NIGHT. PT REP PAIN LUCIA AT REST, DOES INC W/MVMT, DECLINED NEED FOR PAIN MEDS. INCISIONS INTACT, STOMA SITE W/SS DRNG. PO INTAKE MINIMAL, PO FLUIDS ENC. PT BT HYPO, PT HAD NO C/O N/V, NO FLATUS YET. PT CONT TO HAVE SMALL AMT BLEEDING FROM RECTUM, SITZ BATH DONE X1 THIS SHIFT. PT UP OOB W/SBA, PT LUCIA WELL.
--- NOTE | 2020-08-11 08:00 | NUR ---
PT SITTING UP ON EDGE OF THE BED EATING BREAKFAST NO NAUSEA AT THIS TIME
--- NOTE | 2020-08-11 08:45 | NUR ---
meds given as sched pt denies nausea afer eating her breakfast will change dressing
--- NOTE | 2020-08-11 11:06 | NUR ---
pt just had sitz bath no bleeding noted
--- NOTE | 2020-08-11 11:55 | NUR ---
pt eating lunch
--- NOTE | 2020-08-11 12:54 | NUR ---
pt faustina lunch no nausea
--- NOTE | 2020-08-11 13:59 | NUR ---
iv toradol serosang drainage to abd pt stated if it stops draining it can be a bandaid only
--- NOTE | 2020-08-11 17:31 | NUR ---
pt eating dinner
--- NOTE | 2020-08-11 18:26 | NUR ---
dr cardoza by to see pt
--- NOTE | 2020-08-12 06:23 | NUR ---
SHIFT SUMMARY: HADLEY IS A&OX4. VSS, NO ACUTE EVENTS OVERNIGHT. DRESSING CHANGED TO PREVIOUS STOMA SITE. SHE IS INDEPENDENT IN THE ROOM, NO DIFFICULTY URINATING. SHE REPORTS ADEQUATE PAIN CONTROL WITH THE TORADOL, STATES THAT NARCOTICS MAKE HER ILL. SHE IS LYING IN BED WITH THE CALL LIGHT IN REACH, WILL REPORT TO DAY SHIFT RN.
--- NOTE | 2020-08-12 16:51 | NUR ---
SHIFT SUMMARY POD 2 LAP ILEOSTOMY CLOSURE. PT PAIN MANAGED PER EMAR. DRESSING OVER SITE CHANGED WITH MD. PT REPORTS SITE MORE SATURATED AFTER SHE MOVES AND SITS UP. PT EDUCATED TO CALL IF SHE STANDS UP OR SITS UP SO IT CAN BE CHECKED. PT REPORTS PASSING FLATUS, DENIES BM AT THIS TIME. TOLERATING PO. NAUSEA ONCE THIS MORNING, MEDICATED WITH ZOFRAN. PT AMBULATING TO RESTROOM. VOIDING WELL. PLAN TO CONTINUE TO MONITOR FOR BOWEL MOVEMENT.
[2020-08-13 04:40] LABS: Hematocrit 32.6 % (33.0-51.0); Hemoglobin 10.4 g/dL (11.5-16.0); Mean Corpuscular HGB 32.8 pg (26.0-34.0); Mean Corpuscular HGB Conc 31.9 g/dL (31.5-36.5); Mean Corpuscular Volume 103 fL (80-100); Mean Platelet Volume 10.3 fL (9.1-12.4); Platelet Count 196 K/mm3 (150-400); RDW Coefficient Variation 13.7 % (11.7-14.2); RDW Standard Deviation 52.4 fL (35.1-46.3); Red Blood Cell Count 3.17 M/mm3 (3.80-5.20); White Blood Cell Count 6.04 K/mm3 (4.00-11.30)
[2020-08-13 04:58] LABS: Magnesium, Blood 1.9 mg/dL (1.6-2.4)
[2020-08-13 04:59] LABS: Anion Gap 5 mmol/L (6-16); Blood Urea Nitrogen 12 mg/dL (8-24); CO2, Blood 26 mmol/L (21-32); Calcium, Blood 8.3 mg/dL (8.5-10.1); Chloride, Blood 115 mmol/L (98-108); Creatinine, Blood 0.75 mg/dL (0.40-1.00); Glomerular Filtration Rate >60 (60-); Glucose, Blood 91 mg/dL (70-99); Potassium, Blood 3.8 mmol/L (3.5-5.5); Sodium, Blood 146 mmol/L (136-145)
--- NOTE | 2020-08-13 05:29 | NUR ---
SHIFT SUMMARY: SREEKANTH IS A&OX4. VSS, NO ACUTE EVENTS OVERNIGHT. SHE HAS RESTED QUIETLY FOR THE MAJORITY OF THE SHIFT. SHE REPORTS ADEQUATE PAIN CONTROL WITH THE TORADOL. SHE DID HAVE A BOWEL MOVEMENT YESTERDAY. SHE IS TOLERATING SMALL AMOUNTS OF PO INTAKE, DENIES NAUSEA OR VOMITING. DRESSING TO ABDOMEN C/D&I. SHE IS INDEPENDENT IN THE ROOM. SHE USES HER CALL LIGHT APPROPRIATELY. SHE IS LYING IN BED WITH HER EYES CLOSED AND EVEN, UNLABORED RESPIRATIONS. WILL REPORT TO DAY SHIFT RN.
[2020-08-13] MEDS ORDERED: ACET325 PO (13:34)
[2020-08-13] MEDS ORDERED: IBUP400 PO (13:35)
--- NOTE | 2020-08-13 14:38 | NUR ---
DISCHARGE PT LEFT VIA WHEELCHAIR WITH . PT HAD ALL BELONGINGS IN HAND. EXTRA DRESSINGS SUPPLIES SENT WITH PATIENT FOR CARE OF SURGICAL SITE. PT VERBALIZED UNDERSTANDING AND DENIED FURTHER QUESTION. PT DENIED PAIN AT THIS TIME AND STATED NAUSEA IS MANAGED. IV REMOVED.
== END 2020-08-13 14:30 | disposition home or self-care (01) | DRG 330 ==
LOC: SURS 08-10 06:13 → PRE IP 08-10 07:30 → SURS 08-10 10:28
PROVIDERS: ADMIT Surgery
PROC: 0D9QXZZ Drainage of Anus, External Approach (ICD-10-PCS; 2020-08-10)
PROC: 0DSB0ZZ Reposition Ileum, Open Approach (ICD-10-PCS; principal; 2020-08-10 07:30)
DX: Z43.2 Encounter for attention to ileostomy (principal); K57.20 Diverticulitis of large intestine with perforation and abscess without bleeding; Z77.22 Contact with and (suspected) exposure to environmental tobacco smoke (acute) (chronic); K64.5 Perianal venous thrombosis; E03.9 Hypothyroidism, unspecified
CPT/HCPCS: 36415; 80048; 83735; 85027; 88307; A9270; J0690; J1100; J1170; J1650; J1885; J2250; J2370; J2405; J2704; J2765; J3010; J7120